=== PATIENT | female | born 1950 | race Caucasian/White ===

== ENCOUNTER 2017-10-16 07:42 | Observation (INO) ==
--- NOTE | 2017-10-16 08:08 | Emergency Department Note ---
Disposition Clinical Impression: Exertional dyspnea Chest pain Qualifiers: Chest pain type: unspecified Qualified Code(s): R07.9 - Chest pain, unspecified Disposition: Admitted As Inpatient Condition: Fair Time of Disposition: 10:02 Chest Pain HPI - General Stated Complaint: CP,BABATUNDE Time Seen by Provider: 10/16/17 07:46 Source: patient Limitations: no limitations Vital Signs Reviewed: Yes Nursing Notes Reviewed: Yes - History of Present Illness HPI Narrative: Patient is a 67-year-old female who presents to [facility] ED with a chief complaint of chest pain. States her symptoms started earlier this morning and felt like a burning ache. States it radiated to her shoulder and upper neck. The entire episode lasted for about 45 minutes. It then happened again later on in the morning. Admits to nausea and breaking out in a sweat. States she has been feeling short of breath especially with exertion. Denies any recent cough or cold. No vomiting. No abdominal pain, problems with urination or bowel movements. No prior cardiac history including stress testing or catheterization. She does have a family history of cardiac disease. Pt complaint: chest pain Onset (ago): hour(s) Duration: intermittent Onset: during rest Pain Location: substernal, left chest Severity: moderate Severity scale (1-10): 2 Quality: aching Pain Radiation: LUE, neck Improves with: nothing Worsens with: nothing Associated symptoms: Reports: nausea, dyspnea. Denies: vomiting, fever, cough Treatments prior to arrival chest pain: none - Related Data Home Medications Medication Instructions Recorded Confirmed Famotidine [Pepcid] 40 mg PO DAILY 10/16/17 10/16/17 Loratadine [Claritin] 10 mg PO DAILY 10/16/17 10/16/17 Mometasone/Formoterol [Dulera 100 2 puff IH QPM 10/16/17 10/16/17 Mcg/5 Mcg Inhaler] Valsartan/Hydrochlorothiazide 1 tab PO DAILY 10/16/17 10/16/17 [Diovan Hct 160-25 mg Tablet] amLODIPine [Norvasc] 10 mg PO DAILY 10/16/17 10/16/17 cloNIDine HCl [CloNIDine HCl] 0.1 mg PO DAILY PRN 10/16/17 10/16/17 Allergies Allergy/AdvReac Type Severity Reaction Status Date / Time codeine AdvReac Confusion Verified 10/16/17 08:57 Penicillins AdvReac Confusion Verified 10/16/17 08:57 All systems ED: reviewed and negative except as stated. Chest Pain PMH - Past Medical History Medical history: Reports: DVT, hypertension Psychiatric history: Reports: no psych history - Social History Smoking Status: Never smoker Alcohol use: Reports: none Drug use: Reports: none Physical Exam - General Limitations: no limitations General appearance: alert, in no apparent distress - Head Head exam: atraumatic, normocephalic, normal inspection - Eye Eye exam: Present: normal appearance, EOMI - ENT ENT exam: normal exam, normal oropharynx, mucous membranes moist - Neck Neck exam: Present: normal inspection, full ROM, trachea midline - Chest Chest inspection: Present: normal inspection, symmetric chest wall rise - Respiratory Respiratory exam: Present: normal lung sounds bilaterally - Cardiovascular Cardiovascular exam: Present: normal rhythm, tachycardia - Abdominal Exam Abdominal exam: Present: soft, Non-Tender. Absent: tenderness, distention, guarding, rebound, rigidity - Extremities Exam Extremities exam: Present: normal inspection - Back Exam Back exam: Present: normal inspection, full ROM. Absent: tenderness - Neurological Exam Neurological exam: Present: alert, oriented X3 - Psychiatric Psychiatric exam: Present: normal affect, normal mood - Skin Skin exam: Present: warm, dry, intact, normal color Course Course Narrative: Patient seen and examined. Chest pain and dyspnea worse with exertion. Cardiopulmonary workup initiated. She does have history of DVT and [place] filter placement. With her tachycardia and hypoxemia, I am concerned for pulmonary embolus. CTA chest ordered. - Reevaluation(s) Reevaluation #1: Labwork, imaging unremarkable. No signs of pulmonary embolus. Will admit for ACS workup. Discussed with hospitalist who has accepted patient for admission. Time: 10:02 Vital Signs Temperature 97.5 F L 10/16/17 07:45 Pulse Rate 110 10/16/17 07:45 Respiratory Rate 16 10/16/17 07:45 Blood Pressure 167/107 10/16/17 07:45 O2 Sat by Pulse Oximetry 94 10/16/17 07:45 Temperature 97.6 F 10/16/17 10:49 Pulse Rate 84 10/16/17 10:49 Respiratory Rate 16 10/16/17 10:49 Blood Pressure 128/96 10/16/17 10:49 O2 Sat by Pulse Oximetry 94 10/16/17 10:49 Oxygen Delivery Oxygen Delivery Room Air Chest Pain - Medical Records Medical records reviewed: Yes I reviewed the patient's medical records. - Lab Data Lab results reviewed: Yes I reviewed the patient's lab results. Result diagrams: 10/16/17 07:50 10/16/17 07:50 Lab Results 10/16/17 10/16/17 Range/Units 07:50 07:50 WBC 10.9 (4.3-11.1) K/mcL RBC 4.97 (3.82-4.97) M/mcL Hgb 15.6 H (11.5-15.4) g/dL Hct 47.7 H (35.3-44.9) % MCV 96.0 (83.0-100.0) fL MCH 31.4 (28.0-33.3) pg MCHC 32.7 (31.6-35.5) g/dL RDW 12.9 (11.5-14.5) % Plt Count 301 (140-400) K/mcL MPV 11.2 (9.4-12.4) fL Immature Gran % 0.4 (0-4) % Seg Neutrophils % 74.6 % Lymphocytes % 15.0 % Monocytes % 4.1 % Eosinophils % 5.3 % Basophils % 0.6 % Neutrophils # 8.1 (1.6-8.9) K/mcL Lymphocytes # 1.6 (0.6-4.6) K/mcL Monocytes # 0.5 (0.0-1.3) K/mcL Eosinophils # 0.6 (0.0-0.6) K/mcL Basophils # 0.1 (0.0-0.2) K/mcL Sodium 138 (136-145) mEq/L Potassium 3.6 (3.5-5.1) mEq/L Chloride 103 (98-107) mEq/L Carbon Dioxide 24 (23-29) mEq/L BUN 13 (8-23) mg/dL Creatinine 0.84 (0.60-1.20) mg/dL Est GFR ( Amer) > 60 (> 60) Est GFR (Non-Af Amer) > 60 (> 60) BUN/Creatinine Ratio 15 (6-26) Glucose 114 H (70-105) mg/dL Calculated Osmolality 287 (280-300) Calcium 10.4 H (8.6-10.3) mg/dL Troponin I < 0.03 (< 0.04) ng/mL - Radiology Data Radiology results reviewed: Yes I reviewed the patient's radiology results. Chest X-Ray 10/16/17 07:56 IMPRESSION: No acute abnormality. D/ / Deion Carreno MD / Deion Carreno MD Interpreting Provider: Deion Carreno MD Chest CTA 10/16/17 08:05 IMPRESSION: No pulmonary emboli are identified. No mediastinal lymphadenopathy or spiculated lung mass. Patchy mosaic attenuation related to small airways disease, with mild ground-glass change noted at the lung bases which could represent an atypical infectious process or mild edema. No confluent pneumonia or pleural effusion. Small subpleural nodule in the right middle lobe measuring 4.4 mm. Follow-up recommendations as below per Fleischner criteria. RECOMMENDATIONS: Fleischner Society guidelines for follow-up and management of incidentally detected pulmonary nodules: Single Solid Nodule: Nodule size less than 6 mm In a low-risk patient, no routine follow-up. In a high-risk patient, optional CT at 12 months. - Low risk patients include individuals with minimal or absent history of smoking and other known risk factors. - High risk patients include individuals with a history or smoking or known risk factors. Radiology 2017 http://pubs.rsna.org/doi/full/10.1148/radiol.[email or web address] D/ / Richard Verdugo MD / Richard Verdugo MD Interpreting Provider: Richard Verdugo MD - EKG Data EKG attestation: Yes I reviewed and interpreted this EKG. EKG results narrative: EKG done at 749 shows sinus tachycardia with a rate of [address] elevation. ST depression noted in leads V4 through V6. Normal axis. Poor quality EKG. Heart Score - Score History: Moderately Suspicious EKG: Non Specific repolarisation Disturbance Age: Greater than 65 Risk Factors: 1-2 risk factors Troponin: Less than normal limit HEART Score Total: 5 Attestation Statement - Attestation Attestation: Pt seen by Dr. Navarro, discussed in detail with me, sent to the floor before I made it to the room for face to face time. I directed medical decision making and reviewed all test results.
[2017-10-16 08:14] LABS: Basophils # 0.1 K/mcL (0.0-0.2); Basophils % 0.6 %; Eosinophils # 0.6 K/mcL (0.0-0.6); Eosinophils % 5.3 %; Hematocrit 47.7 % (35.3-44.9); Hemoglobin 15.6 g/dL (11.5-15.4); Immature Granulocytes % 0.4 % (0-4); Lymphocytes # 1.6 K/mcL (0.6-4.6); Mean Corpuscular HGB Conc 32.7 g/dL (31.6-35.5); Mean Corpuscular Hemoglobin 31.4 pg (28.0-33.3); Mean Platelet Volume 11.2 fL (9.4-12.4); Monocytes # 0.5 K/mcL (0.0-1.3); Monocytes % 4.1 %; Neutrophils # 8.1 K/mcL (1.6-8.9); Platelet Count 301 K/mcL (140-400); Red Blood Count 4.97 M/mcL (3.82-4.97); Red Cell Distribution Width 12.9 % (11.5-14.5); Segmented Neutrophils % 74.6 %
[2017-10-16 08:31] LABS: BUN/Creatinine Ratio 15 (6-26); Blood Urea Nitrogen 13 mg/dL (8-23); Calcium 10.4 mg/dL (8.6-10.3); Carbon Dioxide 24 mEq/L (23-29); Chloride 103 mEq/L (98-107); Glucose 114 mg/dL (70-105); Osmolality,Calculated 287 (280-300); Potassium 3.6 mEq/L (3.5-5.1); Sodium 138 mEq/L (136-145); eGFR For African Americans > 60 (> 60); eGFR For Non-African Americans > 60 (> 60)
[2017-10-16 08:32] LABS: Troponin I < 0.03 ng/mL (< 0.04)
[2017-10-16] MEDS ORDERED: *HR* Promethazine 25 MG/ML VIAL IVP PRN (10:58)
[2017-10-16] MEDS ORDERED: Naloxone 0.4 MG/ML INJ IVP PRN (10:58)
[2017-10-16] MEDS ORDERED: *HR* HYDROcodone/Acet 5/325 mg TABLET PO PRN (10:58)
[2017-10-16] MEDS ORDERED: Ondansetron 4 MG/2 ML VIAL IVP PRN (10:58)
[2017-10-16] MEDS ORDERED: Nitroglycerin 0.4 MG TAB.SUBL SL PRN (11:01)
[2017-10-16] MEDS ORDERED: cloNIDine HCl 0.1 MG TABLET PO PRN (11:01)
[2017-10-16] MEDS: Aspirin Enteric Coated 81 MG Tablet PO SCH (12:22)
--- NOTE | 2017-10-16 12:42 | Internal Med History&Physical ---
Date of Encounter: 10/16/17 Time of Encounter: 11:00 Assessment and Plan (1) Chest pain Current visit: Yes Status: Acute Will admit the pt into Tele for observation Will place pt on monitoring analyst check serial troponin so far negative troponin EKG reviewed - Showed NSR, no acute ischemic changes will start pt on ASA, Nitro PRN for pain Cont home med BB Will check FLP in AM Will get stress test in AM since pt is high risk for ACS with her significant FH , age and HTN Reviewed CXR - showed no infiltrates / No consolidation Reviewed CTA of Chest - No PE. she does have small RML lung nodule Qualifiers: Chest pain type: unspecified Qualified Code(s): R07.9 - Chest pain, unspecified (2) HTN (hypertension) Current visit: Yes Status: Acute stable resumed all home meds Qualifiers: Hypertension type: essential hypertension Qualified Code(s): I10 - Essential (primary) hypertension (3) Asthma Current visit: Yes Status: Chronic Not in exacerbation resumed home inhalers Qualifiers: Asthma severity: mild Asthma persistence: intermittent Qualified Code(s) : J45.20 - Mild intermittent asthma, uncomplicated (4) Lung nodule Current visit: Yes Status: Acute CT of chest showed RML 4mm lung nodule need f/u CT of Chest as an out pt in 6 months Internal Medicine - H&P: HPI Chief complaint: Chest pain Admitted From: Emergency Dept Plans for Post Hospital Care: Home History of present illness: Ms. Diaz is a 67 year old female with known PMH of HTN, HLD and Asthma pt presented to ER c/o Sub sternal and Left chest wall pain since this morning lasted for 5-10 minutes. Her pain is non radiating and more like pressure and burning type pain. She does have similar CP on and off from last 2-3 weeks. She does get some epigastric discomfort and heart burn later develops chest pain, whole episodes last for 5 minutes. Today her pain more severe, which made her come to ER. She denied any active CP now. She does take Prilosec 20mg at home at bed time. Past Med Surg Social Fam HX - Past Medical History Medical history: DVT, hypertension Psychiatric history: no psych history - Past Surgical History Surgical History: no surgical history - Social History Smoking Status: Never smoker Smokeless Tobacco Status: No Alcohol use: none Drug use: none - Family History Father Hx Family Cardiac Disorders: Yes (IA s/p CABG) Brother Hx Family Cardiac Disorders: Yes ( with massive IA in his 40's) Internal Medicine - H&P: Meds Famotidine [Pepcid] 40 mg PO DAILY 10/16/17 [History] Loratadine [Claritin] 10 mg PO DAILY 10/16/17 [History] Mometasone/Formoterol [Dulera 100 Mcg/5 Mcg Inhaler] 2 puff IH QPM 10/16/17 [ History] Valsartan/Hydrochlorothiazide [Diovan Hct 160-25 mg Tablet] 1 tab PO DAILY 10/16 [History] amLODIPine [Norvasc] 10 mg PO DAILY 10/16/17 [History] cloNIDine HCl [CloNIDine HCl] 0.1 mg PO DAILY PRN 10/16/17 [History] 3 Allergy/AdvReac Type Severity Reaction Status Date / Time codeine AdvReac Confusion Verified 10/16/17 08:57 Penicillins AdvReac Confusion Verified 10/16/17 08:57 All Systems PM: A 10-system review of systems was performed and is negative for pertinent findings except as documented above in the HPI. Review of systems: All the systems are reviewed everything is benign except the systems and symptoms I mentioned in the history of present illness - Constitutional Vitals: Temp Pulse Resp BP Pulse Ox 97.6 F 84 16 128/96 94 10/16/17 10:49 10/16/17 10:49 10/16/17 10:49 10/16/17 10:49 10/16/17 10:49 General appearance: Present: cooperative, A&O X 3, answers questions appropriately - Head Head exam: Present: atraumatic, normal inspection - Neck Neck exam general surgery: Present: supple - Respiratory Respiratory exam: Present: decreased breath sounds. Absent: chest wall tenderness, rales, respiratory distress, rhonchi, wheezes - Cardiovascular Cardiovascular exam: Present: RRR, +S1, +S2. Absent: tachycardia - GI/Abdominal GI/Abdominal exam: Present: normal bowel sounds, soft. Absent: rebound, rigid, tenderness - Extremities Exam Extremities exam: Absent: calf tenderness, pedal edema, tenderness - Back Exam Back exam: Absent: CVA tenderness (L), CVA tenderness (R) - Neurological Exam Neurological exam: Present: alert, oriented X3 - Psychiatric Psychiatric exam: Present: normal affect, normal mood Internal Med - H&P Results - Labs CBC & Chem 7: 10/16/17 07:50 10/16/17 07:50
[2017-10-16] MEDS ORDERED: Budesonide/Formoterol 80/4.5 MDI IH SCH (18:00)
[2017-10-16] MEDS: amLODIPine 5 MG TABLET PO SCH (20:57)
--- NOTE | 2017-10-16 21:02 | Electrocardiograph Report ---
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
[2017-10-17] MEDS ORDERED: Regadenoson 0.4 MG/5 ML SYRINGE IVP ONE (05:49)
[2017-10-17 06:35] VITALS: BP 119/82
[2017-10-17 06:38] LABS: Chol/HDL Ratio 2.8 (0-4.9)
--- NOTE | 2017-10-17 08:42 | Discharge Summary ---
<Arti Feldman - Last Filed: 10/17/17 09:54> Orders not resulted at time of discharge: Pending orders 10/16/17 11:00 NM john paul perf SPECT multi [NM] Routine Date of Encounter: 10/17/17 Time of Encounter: 08:37 - Discharge Diagnosis (1) Chest pain Priority: Primary Status: Acute Qualifiers: Chest pain type: unspecified Qualified Code(s): R07.9 - Chest pain, unspecified (2) HTN (hypertension) Priority: Secondary Status: Acute Qualifiers: Hypertension type: essential hypertension Qualified Code(s): I10 - Essential (primary) hypertension (3) Asthma Priority: Secondary Status: Chronic Qualifiers: Asthma severity: mild Asthma persistence: intermittent (4) Lung nodule Priority: Secondary Status: Acute Hospital course: Ms. Diaz is a 67 year old female with past medical history of HTN, HLD, asthma , DVT. She arrived to the emergency department on 10/16/17 with chief complaint of sub sternal chest pain that was not radiating. Her chest pain was atypical in nature. She was admitted to the hospital for observation and further workup. Chest x-ray showed no acute abnormality. Chest CTA was negative for PE , there was a small sub floral nodule in the right middle lobe measuring 4.4mm. this should be followed up with by her primary care provider. serial troponins were negative. Patient did have nuclear stress test was negative for ischemia or infarct, gated EF>70%. Patient's ASCVD risk was 8.2%, so she was started on statin therapy. He was educated on lifestyle modifications, avoiding foods that person acid reflux. She had no acute events during her hospitalization and was discharged home in stable condition. She will follow up with her primary care provider for non cardiac causes of chest pain. - Time Spent with Patient Total time spent providing and/or coordinating discharge services: Greater than 30 minutes (35) - Discharge Medications Prescriptions: Aspirin Enteric Coated [Aspirin EC] 81 mg PO DAILY #30 tablet. Simvastatin [Zocor] 20 mg PO HS #30 tablet Home Medications: Famotidine [Pepcid] 40 mg PO DAILY 10/16/17 [History] Loratadine [Claritin] 10 mg PO DAILY 10/16/17 [History] Mometasone/Formoterol [Dulera 100 Mcg/5 Mcg Inhaler] 2 puff IH QPM 10/16/17 [ History] Valsartan/Hydrochlorothiazide [Diovan Hct 160-25 mg Tablet] 1 tab PO DAILY 10/16 [History] amLODIPine [Norvasc] 10 mg PO DAILY 10/16/17 [History] cloNIDine HCl [CloNIDine HCl] 0.1 mg PO DAILY PRN 10/16/17 [History] Aspirin Enteric Coated [Aspirin EC] 81 mg PO DAILY #30 tablet. 10/17/17 [Rx] Simvastatin [Zocor] 20 mg PO HS #30 tablet 10/17/17 [Rx] Allergies/Adverse Reactions: 3 Allergy/AdvReac Type Severity Reaction Status Date / Time codeine AdvReac Confusion Verified 10/16/17 08:57 Penicillins AdvReac Confusion Verified 10/16/17 08:57 Date of admission: 10/16/17 10:10 Primary care physician: PCP NONE Discharging clinician: Arti Feldman Anticipated date of discharge: 10/17/17 - Constitutional Vitals: Temp Pulse Resp BP Pulse Ox 97.9 F 69 18 119/82 90 10/17/17 06:34 10/17/17 06:34 10/17/17 06:34 10/17/17 06:34 10/17/17 06:34 General appearance: Present: cooperative, A&O X 3, answers questions appropriately - Head Head exam: Present: atraumatic, normocephalic - Neck Neck exam general surgery: Present: supple, trachea midline - Respiratory Respiratory exam: Present: CTAB - Cardiovascular Cardiovascular exam: Present: RRR, +S1, +S2 - GI/Abdominal GI/Abdominal exam: Present: normal bowel sounds. Absent: distended, tenderness - Extremities Exam Extremities exam: Absent: cyanotic, pedal edema - Neurological Exam Neurological exam: Present: alert, oriented X3, no focal deficits - Patient Status Disposition: Home, Self-Care Condition: Fair Functional capacity at discharge: independent ambulation Overall status at discharge: patient is back to baseline - Discharge Instructions Instructions: Chest Pain (DC), Asthma (DC), Chronic Hypertension (DC) Follow Up With: NONE,PCP [Primary Care Provider] - Forms: ED Satisfaction Letter Additional Instructions: Follow-up with a primary care provider within one week of discharge. If you do not have a primary care provider you may establish at the residency clinic. Please follow-up with your doctor regarding noncardiac causes of your chest pain. Return to the emergency department if symptoms return. - Diet and Activity Activity: increase activity as tolerated Diet: low fat, low cholesterol <Ottoniel Torres - Last Filed: 10/17/17 18:52> Orders not resulted at time of discharge: Pending orders 10/16/17 11:00 NM john paul perf SPECT multi [NM] Routine Date of Encounter: 10/17/17 Hospital course: Ms. Diaz is a 67 year old female - Time Spent with Patient Total time spent providing and/or coordinating discharge services: Date of admission: 10/16/17 10:10 Primary care physician: PCP NONE - Constitutional Vitals: Temp Pulse Resp BP Pulse Ox 97.9 F 69 18 119/82 90 10/17/17 06:34 10/17/17 06:34 10/17/17 06:34 10/17/17 06:34 10/17/17 06:34 - Attending Attestation I was not able to see her prior to DC. I agreed with the medical decision making of the Resident. I agree with the documented findings, disposition and treatment plan as described except to the extent set forth below.
[2017-10-17] MEDS: Aspirin Enteric Coated 81 MG Tablet PO SCH (08:51)
[2017-10-17] MEDS: amLODIPine 5 MG TABLET PO SCH (08:51)
[2017-10-17] MEDS ORDERED: Famotidine 20 MG TABLET PO SCH (09:00)
[2017-10-17] MEDS ORDERED: Loratadine 10 MG TABLET PO SCH (09:00)
[2017-10-17] MEDS ORDERED: amLODIPine 5 MG TABLET PO SCH (09:00)
[2017-10-17] MEDS ORDERED: Patient Taking Own Medication 1 EACH PO SCH (09:00)
== END 2017-10-17 11:35 | disposition home or self-care (01) ==
LOC: EMEROO 07:42 → 2SOUTHHOLD 07:42 → 3BNU 17:28
PROVIDERS: ADMIT Family Medicine; ATTEND Internal Medicine